=== PATIENT | male | born 1990 | race Asian ===

== ENCOUNTER 2019-02-26 10:38 | Emergency (ER) | payer MEDICARE ==
[~2019-02-26] VITALS: Ht 165.1 cm; Wt 165.0 kg
[2019-02-26] MEDS ORDERED: LIDOcaine 1% 30ml preserv. free vial IJ ONE (10:45)
[2019-02-26 10:47] VITALS: BP 133/84
== END 2019-02-26 11:19 | disposition home or self-care (01) ==
LOC: ER 10:39
DX: S61.205A Unspecified open wound of left ring finger without damage to nail, initial encounter (principal); S60.221A Contusion of right hand, initial encounter; S60.512A Abrasion of left hand, initial encounter; S00.81XA Abrasion of other part of head, initial encounter; X58.XXXA Exposure to other specified factors, initial encounter; Y93.89 Activity, other specified; Y92.69 Other specified industrial and construction area as the place of occurrence of the external cause; Y99.9 Unspecified external cause status
CPT/HCPCS: 73130; 99283

== ENCOUNTER 2021-09-25 16:38 | Emergency (ER) | payer MEDICARE ==
[~2021-09-25] VITALS: Ht 170.2 cm; Wt 75.0 kg
[2021-09-25 18:00] VITALS: BP 118/67
== END 2021-09-25 18:08 | disposition home or self-care (01) ==
LOC: ER 16:39 → EEVIPCON 16:39 → ER 18:08
DX: S13.4XXA Sprain of ligaments of cervical spine, initial encounter (principal); S00.03XA Contusion of scalp, initial encounter; S00.81XA Abrasion of other part of head, initial encounter; S09.90XA Unspecified injury of head, initial encounter; Y04.2XXA Assault by strike against or bumped into by another person, initial encounter; Y93.89 Activity, other specified; Y92.89 Other specified places as the place of occurrence of the external cause; Y99.8 Other external cause status
CPT/HCPCS: 99284

== ENCOUNTER → 2022-11-08 | Emergency (ER) | payer MEDICARE, OTHER ==
[~2022-11-08] VITALS: Ht 165.1 cm; Wt 70.5 kg
[~2022-11-08] MED LIST: AMOX-117 PO; TETanus/Pertussis (Acell)/Diphther VAC/PF (Tdap-Adult) 0.5ml syringe IMVAC ONE; bacitracin 15gm ointment TP ONE
[2022-11-08 15:56] VITALS: BP 131/90
--- NOTE | 2022-11-08 16:14 | NUR ---
Bacitrcin, non stick gauze and corina wrap to hold gauze in place.
== END | disposition home or self-care (01) ==
LOC: ER 15:44
DX: S71.152A Open bite, left thigh, initial encounter (principal); W54.0XXA Bitten by dog, initial encounter; Y93.89 Activity, other specified; Y92.89 Other specified places as the place of occurrence of the external cause; Y99.8 Other external cause status
CPT/HCPCS: 90471; 90715; 99283